=== PATIENT | male | born 1985 | race African-American/Black ===

== ENCOUNTER 2016-09-03 23:02 | Emergency (ER) | payer OTHER ==
--- NOTE | 2016-09-04 01:10 | ER Document Report ---
ED Medical Screen (RME) - General Chief Complaint: Abdominal Pain Stated Complaint: ABDOMINAL PAIN Time Seen by Provider: 09/04/16 01:08 Mode of Arrival: Ambulatory Information source: Patient Notes: 30-year-old male presents to ED for stomach ulcers and rectal bleeding. States he has been going back up to the [place] for 2 months for pain and ulcers. He states he has had the bloody stools for a month and on. He states he was seen at the [place] this morning and discharged at 6 AM that is on some new medicines. He states this afternoon he had a hard stool with blood around it. Then has had some bleeding without having a stool since then. I have greeted and performed a rapid initial assessment of this patient. A comprehensive ED assessment and evaluation of the patient, analysis of test results and completion of medical decision making process will be conducted by an additional ED providers. TRAVEL OUTSIDE OF THE [place] IN LAST 30 DAYS: No - Related Data Allergies/Adverse Reactions: No Known Allergies Allergy (Verified 09/04/16 00:03) Past Medical History Renal/ Medical History: Denies: Hx Peritoneal Dialysis Psychiatric Medical History: Reports: Hx Post Traumatic Stress Disorder - Immunizations Hx Diphtheria, Pertussis, Tetanus Vaccination: No Physical Exam - Vital signs Vitals: Temp Pulse Resp BP Pulse Ox 98.4 F 61 16 150/98 H 98 09/04/16 00:00 09/04/16 00:00 09/04/16 00:00 09/04/16 00:00 09/04/16 00:00 Course - Vital Signs Vital signs: Temp Pulse Resp BP Pulse Ox 98.4 F 61 16 150/98 H 98 09/04/16 00:00 09/04/16 00:00 09/04/16 00:00 09/04/16 00:00 09/04/16 00:00
[2016-09-04 02:22] LABS: ALANINE AMINOTRANSFERASE 17 U/L (21-72); ALBUMIN 4.2 g/dL (3.5-5.0); ALKALINE PHOSPHATASE 111 U/L (38-126); ANION GAP 12 (5-19); ASPARTATE AMINO TRANSFERASE 11 U/L (17-59); BILIRUBIN,DIRECT 0.3 mg/dL (0.0-0.4); BILIRUBIN,TOTAL 0.7 mg/dL (0.2-1.3); BLOOD UREA NITROGEN 11 mg/dL (7-20); CALCIUM 9.8 mg/dL (8.4-10.2); CARBON DIOXIDE 28 mmol/L (22-30); CHLORIDE 102 mmol/L (98-107); GLUCOSE 122 mg/dL (75-110); POTASSIUM 4.4 mmol/L (3.6-5.0); SODIUM 141.5 mmol/L (137-145); TOTAL PROTEIN 7.4 g/dL (6.3-8.2)
[2016-09-04 02:29] LABS: ABSOLUTE EOSINOPHILS # (AUTO) 0.6 10^3/uL (0.0-0.6); ABSOLUTE LYMPHOCYTES (AUTO) 2.2 10^3/uL (0.5-4.7); ABSOLUTE MONOCYTES (AUTO) 0.8 10^3/uL (0.1-1.4); ABSOLUTE NEUT (AUTO) 7.1 10^3/uL (1.7-8.2); BASOPHILS % (AUTO) 0.1 % (0-2); EOSINOPHILS % (AUTO) 5.4 % (0-6); HEMOGLOBIN 16.5 g/dL (13.5-17.0); HGB HCT DIFFERENCE 3.5; LYMPHOCYTES % (AUTO) 20.8 % (13-45); MEAN CORPUSCULAR HEMOGLOBIN 29.4 pg (27.0-33.4); MEAN CORPUSCULAR HGB CONC 35.8 g/dL (32.0-36.0); MEAN CORPUSCULAR VOLUME 82 fl (80-97); MONOCYTES % (AUTO) 7.3 % (3-13); RED BLOOD COUNT 5.61 10^6/uL (4.35-5.55); SEGMENTED NEUTROPHILS % (AUTO) 66.4 % (42-78); WHITE BLOOD COUNT 10.7 10^3/uL (4.0-10.5)
[2016-09-04] MEDS ORDERED: MAG HYDROX/AL HYDROX/SIMETH SUSP 30 ML UDCUP PO ONE (02:45)
[2016-09-04] MEDS ORDERED: LIDOCAINE 2% VISCOUS SOLN 20 ML UDCUP PO ONE (02:45)
[2016-09-04] MEDS ORDERED: METOCLOPRAMIDE HCL ORAL SOLN 10 MG/10 ML UDCUP PO ONE (02:45)
--- NOTE | 2016-09-04 03:01 | ER Document Report ---
ED General - General Chief Complaint: Abdominal Pain Stated Complaint: ABDOMINAL PAIN Time Seen by Provider: 09/04/16 01:08 Mode of Arrival: Ambulatory Notes: Patient is a 30-year-old male who presents with complaint of central abdominal pain. Worse over the epigastric area. No vomiting. Recently he has noticed some blood in his stool. It is bright red. This most on the toilet paper and then some into the toilet bowl as well. No history of hemorrhoids. [facility] Meenu weber who diagnosed with likely gastric ulcer. He is placed on Pepcid. To the Pepcid helps some but he still has pain. She denies any fevers or recent infections. No history of endoscopy or colonoscopy. He is set up to see GI specialist on October 04. He does not take NSAID medications. He occasionally smokes cigarettes. He does not drink alcohol. No drug use. TRAVEL OUTSIDE OF THE [place] IN LAST 30 DAYS: No - Related Data Allergies/Adverse Reactions: No Known Allergies Allergy (Verified 09/04/16 00:03) Past Medical History - General Information source: Patient - Social History Smoking Status: Current Some Day Smoker Frequency of alcohol use: None Drug Abuse: None Family History: Reviewed & Not Pertinent Patient has suicidal ideation: No Patient has homicidal ideation: No Renal/ Medical History: Denies: Hx Peritoneal Dialysis Psychiatric Medical History: Reports: Hx Post Traumatic Stress Disorder - Immunizations Hx Diphtheria, Pertussis, Tetanus Vaccination: No Review of Systems - Review of Systems Notes: My Normal Review Basic REVIEW OF SYSTEMS: CONSTITUTIONAL : Denies fever, chills, or sweats. Denies recent illness. CARDIOVASCULAR: Denies chest pain. RESPIRATORY: Denies cough, cold, or chest congestion. Denies shortness of breath, difficulty breathing, or wheezing. GASTROINTESTINAL: Short abdominal pain. Denies nausea, vomiting, or diarrhea. Occasional blood in stool. GENITOURINARY: Denies difficulty urinating, painful urination, burning, frequency, or blood in urine. MUSCULOSKELETAL: Denies neck or back pain or joint pain or swelling. SKIN: Denies rash or skin lesions. NEUROLOGICAL: Denies altered mental status or loss of consciousness. Denies headache. Denies weakness or paralysis or loss of use of either side. Denies problems with gait or speech. Denies sensory or motor loss. ALL OTHER SYSTEMS REVIEWED AND NEGATIVE. Physical Exam - Vital signs Vitals: Temp Pulse Resp BP Pulse Ox 98.4 F 61 16 150/98 H 98 09/04/16 00:00 09/04/16 00:00 09/04/16 00:00 09/04/16 00:00 09/04/16 00:00 - Notes Notes: General Appearance: Well nourished, alert, cooperative, no acute distress, no obvious discomfort. Vitals: reviewed, See vital signs table. Head: no swelling or tenderness to the head Eyes: PERRL, EOMI, Conjuctiva clear Mouth: No decreasd moisture Lungs: No wheezing, No rales, No rhonci, No accessory muscle use, good air exchange bilaterally. Heart: Normal rate, Regular rythm, No murmur, no rub Abdomen: Normal BS, soft, No rigidity, moderate epigastric and periumbilical pain to palpation of the abdomen., No guarding, no rebound, no abdominal masses , no organomegaly. Rectal: No hemorrhoids or fissures. Extremities: strength 5/5 in all extremities, good pulses in all extremities, no swelling or tenderness in the extremities, no edema. Skin: warm, dry, appropriate color, no rash Neuro: speech clear, oriented x 3, normal affect, responds appropriately to questions. Course - Re-evaluation Re-evalutation: 09/04/16 04:44 Patient says his symptoms are much improved after GI cocktail. Blood work is unremarkable except for very mild leukocytosis. His abdominal exam is benign. The nurse informed me that she was concerned because the patient told her that his pain was so severe earlier that he wanted to kill himself. I did ask the patient about this. Patient smiled and said that he would not actually hurt himself. He says it is just an expression because he was in severe pain. He says he is not suicidal and does not want to harm himself. He does have an upcoming appointment with GI in 1 month. I will have him stop the Pepcid and start Prilosec. I will also place him on Carafate. I informed him that I think the small amount of blood that he had in the toilet bowl earlier is probably not related to an ulcer is probably related to possible internal hemorrhoid being that it was bright red. I encouraged him to return to ER immediately if he has recurrent bleeding or increasing bleeding, worsening pain , fevers, or any vomiting of blood. Patient agrees with plan and will be discharged home. Dictation of this chart was performed using voice recognition software; therefore, there may be some unintended grammatical errors. - Vital Signs Vital signs: Temp Pulse Resp BP Pulse Ox 98.4 F 61 16 150/98 H 98 09/04/16 00:00 09/04/16 00:00 09/04/16 00:00 09/04/16 00:00 09/04/16 00:00 - Laboratory Result Diagrams: 09/04/16 01:30 09/04/16 01:30 Laboratory results interpreted by me: 09/04/16 09/04/16 01:30 01:30 WBC 10.7 H RBC 5.61 H Creatinine 1.60 H Est GFR (Non-Af Amer) 51 L Glucose 122 H AST 11 L ALT 17 L Discharge - Discharge Clinical Impression: Abdominal pain Qualifiers: Abdominal location: epigastric Qualified Code(s): R10.13 - Epigastric pain Condition: Good Disposition: HOME, SELF-CARE Additional Instructions: Please avoid all acidic foods, spicy foods, caffeine, alcohol, coffee, fried foods, and fatty foods. Eat a very bland diet. Please stop taking the Pepcid and start taking the Prilosec and Carafate. Please return to the ER if you have worsening pain, fevers, vomiting of blood or increasing blood in your stool. Prescriptions: Omeprazole 40 mg PO DAILY #30 capsule. Sucralfate [Carafate 1 gm Tablet] 1 gm PO ACHS #120 tablet Forms: Return to Work
[2016-09-04 05:02] VITALS: BP 165/106
== END 2016-09-04 05:02 | disposition home or self-care (01) ==
LOC: ER 23:02
DX: R10.13 Epigastric pain (principal); R10.33 Periumbilical pain; K92.1 Melena; D72.829 Elevated white blood cell count, unspecified; F17.210 Nicotine dependence, cigarettes, uncomplicated
CPT/HCPCS: 99284; 36415; 83690; 85025; 80053; J3490

== ENCOUNTER 2016-09-06 10:16 | Emergency (ER) | payer OTHER ==
[2016-09-06] MEDS ORDERED: LIDOCAINE 2% VISCOUS SOLN 20 ML UDCUP PO ONE (10:46)
[2016-09-06] MEDS ORDERED: MAG HYDROX/AL HYDROX/SIMETH SUSP 30 ML UDCUP PO ONE ×2 (10:46→12:30)
[2016-09-06] MEDS ORDERED: METOCLOPRAMIDE HCL ORAL SOLN 10 MG/10 ML UDCUP PO ONE (10:46)
[2016-09-06 11:41] LABS: ABSOLUTE BASOPHILS # (AUTO) 0.1 10^3/uL (0.0-0.2); ABSOLUTE EOSINOPHILS # (AUTO) 1.3 10^3/uL (0.0-0.6); ABSOLUTE LYMPHOCYTES (AUTO) 2.6 10^3/uL (0.5-4.7); ABSOLUTE MONOCYTES (AUTO) 0.8 10^3/uL (0.1-1.4); ABSOLUTE NEUT (AUTO) 7.5 10^3/uL (1.7-8.2); BASOPHILS % (AUTO) 0.4 % (0-2); EOSINOPHILS % (AUTO) 10.4 % (0-6); HEMATOCRIT 46.6 % (37.9-51.0); HEMOGLOBIN 16.3 g/dL (13.5-17.0); HGB HCT DIFFERENCE 2.3; LYMPHOCYTES % (AUTO) 21.3 % (13-45); MEAN CORPUSCULAR HEMOGLOBIN 29.1 pg (27.0-33.4); MEAN CORPUSCULAR HGB CONC 35.1 g/dL (32.0-36.0); MEAN CORPUSCULAR VOLUME 83 fl (80-97); MONOCYTES % (AUTO) 6.8 % (3-13); RED BLOOD COUNT 5.63 10^6/uL (4.35-5.55); RED CELL DISTRIBUTION WIDTH 13.5 % (11.5-14.0); SEGMENTED NEUTROPHILS % (AUTO) 61.1 % (42-78); WHITE BLOOD COUNT 12.2 10^3/uL (4.0-10.5)
[2016-09-06 11:53] LABS: ALANINE AMINOTRANSFERASE 17 U/L (21-72); ALBUMIN 3.9 g/dL (3.5-5.0); ALKALINE PHOSPHATASE 107 U/L (38-126); ANION GAP 8 (5-19); ASPARTATE AMINO TRANSFERASE 8 U/L (17-59); BILIRUBIN,DIRECT 0.3 mg/dL (0.0-0.4); BILIRUBIN,TOTAL 0.6 mg/dL (0.2-1.3); BLOOD UREA NITROGEN 8 mg/dL (7-20); CALCIUM 9.4 mg/dL (8.4-10.2); CARBON DIOXIDE 29 mmol/L (22-30); CHLORIDE 102 mmol/L (98-107); CREATININE RESULT 1.57 mg/dL (0.52-1.25); GLUCOSE 90 mg/dL (75-110); POTASSIUM 4.2 mmol/L (3.6-5.0); SODIUM 139.3 mmol/L (137-145); TOTAL PROTEIN 6.8 g/dL (6.3-8.2)
--- NOTE | 2016-09-06 12:08 | RADIOLOGY REPORT (SQ) ---
EXAM DESCRIPTION: U/S ABDOMEN COMPLETE W/O DOP COMPLETED DATE/TIME: 09/06/2016 11:58 am REASON FOR STUDY: ruq pain, PT STATES LUQ PAIN COMPARISON: None. TECHNIQUE: Dynamic and static grayscale images acquired of the abdomen and recorded on PACS. Additio elsi selected color Doppler and spectral images recorded. LIMITATIONS: None. FINDINGS: PANCREAS: No masses. Visualized pancreatic duct normal caliber. LIVER: No masses. Echotexture normal. LIVER VASCULATURE: Normal directional flow of the main portal vein and hepatic veins. GALLBLADDER: No stones. Normal wall thickness. No pericholecystic fluid. ULTRASOUND-DETECTED VASQUEZ'S SIGN: Negative. INTRAHEPATIC DUCTS AND COMMON DUCT: CBD and intrahepatic ducts normal caliber. No filling defects. INFERIOR VENA CAVA: Normal flow. AORTA: No aneurysm. RIGHT KIDNEY: Normal size. Normal echogenicity. No solid or suspicious masses. No hydronephros is. No calcifications. LEFT KIDNEY: Normal size. Normal echogenicity. No solid or suspicious masses. No hydronephrosi s. No calcifications. SPLEEN: Normal size. No solid masses. PERITONEAL AND PLEURAL SPACES: No ascites or effusions. OTHER: No other significant finding. IMPRESSION: NORMAL ABDOMINAL ULTRASOUND. TECHNICAL DOCUMENTATION: JOB ID: [id number] [employer]- All Rights Reserved
--- NOTE | 2016-09-06 14:15 | RADIOLOGY REPORT (SQ) ---
EXAM DESCRIPTION: CT ABD/PELVIS NO ORAL OR IV COMPLETED DATE/TIME: 09/06/2016 1:54 pm REASON FOR STUDY: diffuse abd pain COMPARISON: None. TECHNIQUE: CT scan of the abdomen and pelvis performed without intravenous or oral contrast. Images reviewed with lung, soft tissue, and bone windows. Reconstructed coronal and sagittal MPR images revi ewed. All images stored on PACS. All CT scanners at this facility use dose modulation, iterative reconstruction, and/or weight based d osing when appropriate to reduce radiation dose to as low as reasonably achievable (ALARA). [facility]: Dose Right [facility]: CareDose [facility]: Dose Right [facility]: Teradose 4D [facility]: Smart [employer] RADIATION DOSE: Up-to-date CT equipment and radiation dose reduction techniques were employed. CTDIv ol: 5.6 mGy. DLP: 285 mGy-cm.mGy. LIMITATIONS: Lack of contrast and paucity of intra-abdominal fat limits the study. FINDINGS: LOWER CHEST: No significant findings. No nodules or infiltrates. NON-CONTRASTED LIVER, SPLEEN, ADRENALS: Evaluation limited by lack of IV contrast. No identified sign ificant masses. PANCREAS: No masses. No peripancreatic inflammatory changes. GALLBLADDER: No identified stones by CT criteria. No inflammatory changes to suggest cholecystitis. RIGHT KIDNEY AND URETER: No masses. The right kidney lies in the midline in the upper pelvis. No s ignificant calcifications. No hydronephrosis or hydroureter. LEFT KIDNEY AND URETER: No suspicious masses. Assessment limited by lack of IV contrast. No signifi cant calcifications. No hydronephrosis or hydroureter. AORTA AND RETROPERITONEUM: No aneurysm. Numerous mesenteric lymph nodes are present. BOWEL AND PERITONEAL CAVITY: No obvious masses or inflammatory changes. No free fluid. APPENDIX: Normal. PELVIS, BLADDER, AND ABDOMINAL WALL:The urinary bladder is normal. The prostate gland and seminal ve sicles are normal. There is a small amount of free fluid in the pelvis. BONES: No significant findings. OTHER: No other significant finding. IMPRESSION: 1. The right kidney lies in the midline in the upper pelvis. 2. Numerous mesenteric lymph nodes are present concerning for mesenteric adenitis. 3. There is small amount of free fluid in the pelvis. 4. The study is limited as described. TECHNICAL DOCUMENTATION: JOB ID: [id number] Quality ID # [id number]: Final reports with documentation of one or more dose reduction techniques (e.g., Au tomated exposure control, adjustment of the mA and/or kV according to patient size, use of iterative reconstruction technique) 2010 [employer]- All Rights Reserved
--- NOTE | 2016-09-06 14:33 | ER Document Report ---
ED GI/ - General Chief Complaint: Abdominal Pain Stated Complaint: ABDOMINAL PAIN Time Seen by Provider: 09/06/16 10:45 Mode of Arrival: Ambulatory Information source: Patient Notes: Patient presents with severe epigastric pain. He states it is constant and burning and sharp. It is worse with eating and better when he does not. He states he has had approximately 5 visits to emergency department has tried multiple medications. He says the only medication to give some relief is when he is a GI cocktail or Carafate. He states he has an appointment at the end of the month with a dry kiln operator. He has not seen a dry kiln operator previously. He has never had any type of endoscopy done. He does have some nausea. No problems with urine or stool. TRAVEL OUTSIDE OF THE [place] IN LAST 30 DAYS: No - Related Data Allergies/Adverse Reactions: No Known Allergies Allergy (Verified 09/04/16 00:03) Past Medical History - General Information source: Patient - Social History Smoking Status: Current Some Day Smoker Chew tobacco use (# tins/day): No Frequency of alcohol use: None Drug Abuse: None Family History: Reviewed & Not Pertinent Patient has suicidal ideation: No Patient has homicidal ideation: No Renal/ Medical History: Denies: Hx Peritoneal Dialysis Psychiatric Medical History: Reports: Hx Post Traumatic Stress Disorder - Immunizations Hx Diphtheria, Pertussis, Tetanus Vaccination: No Review of Systems - Review of Systems Constitutional: denies: Chills, Fever Cardiovascular: denies: Chest pain, Palpitations Respiratory: denies: Cough, Short of breath Skin: denies: Lesions, Rash -: Yes All other systems reviewed and negative Physical Exam - Vital signs Vitals: Temp Pulse Resp BP Pulse Ox 98 F 74 16 135/74 H 98 09/06/16 10:18 09/06/16 10:18 09/06/16 10:18 09/06/16 10:18 09/06/16 10:18 Interpretation: Normal - General General appearance: Appears well, Alert - HEENT Head: Normocephalic, Atraumatic Eyes: Normal Pupils: PERRL - Respiratory Respiratory status: No respiratory distress Chest status: Nontender Breath sounds: Normal Chest palpation: Normal - Cardiovascular Rhythm: Regular Heart sounds: Normal auscultation Murmur: No - Abdominal Inspection: Normal Distension: No distension Bowel sounds: Normal Tenderness: Tender - Patient has moderate tenderness the bilateral upper quadrants and epigastric area. No rebound no guarding. Organomegaly: No organomegaly - Back Back: Normal, Nontender - Extremities General upper extremity: Normal inspection, Nontender, Normal color, Normal ROM , Normal temperature General lower extremity: Normal inspection, Nontender, Normal color, Normal ROM , Normal temperature, Normal weight bearing. No: Matt's sign - Neurological Neuro grossly intact: Yes Cognition: Normal Orientation: AAOx4 [place] Coma Scale Eye Opening: Spontaneous Love Coma Scale Verbal: Oriented [place] Coma Scale Motor: Obeys Commands Love Coma Scale Total: 15 Speech: Normal Motor strength normal: LUE, RUE, LLE, RLE Sensory: Normal - Psychological Associated symptoms: Normal affect, Normal mood - Skin Skin Temperature: Warm Skin Moisture: Dry Skin Color: Normal Course - Vital Signs Vital signs: Temp Pulse Resp BP Pulse Ox 98 F 74 16 135/74 H 98 09/06/16 10:18 09/06/16 10:18 09/06/16 10:18 09/06/16 10:18 09/06/16 10:18 - Laboratory Result Diagrams: 09/06/16 11:18 09/06/16 11:18 Laboratory results interpreted by me: 09/06/16 09/06/16 11:18 11:18 WBC 12.2 H RBC 5.63 H Eosinophils % 10.4 H Absolute Eosinophils 1.3 H Creatinine 1.57 H Est GFR (Non-Af Amer) 52 L AST 8 L ALT 17 L - Diagnostic Test Radiology reviewed: Image reviewed, Reports reviewed - Patient's ultrasound was unremarkable. CT scan was obtained without contrast because nurses were unable to start an IV. The CT scan did show numerous mesenteric lymph nodes consistent with mesenteric adenitis. I called and discussed this ct personally with the radiologist, Dr. Pike. He stated that a CT with contrast would not add significant benefit to the patient. Discharge - Discharge Clinical Impression: Mesenteric adenitis, Gastritis Condition: Stable Disposition: HOME, SELF-CARE Instructions: Abdominal Pain ([facility]) Additional Instructions: Please follow-up with gastroenterology as scheduled. Prescriptions: Hydrocodone/Acetaminophen [Alpha 5-325 Tablet] 1 - 2 tab PO ASDIR PRN #15 tab PRN Reason: Forms: Return to Work
[2016-09-06 14:46] VITALS: BP 148/94
== END 2016-09-06 14:46 | disposition home or self-care (01) ==
LOC: ER 10:16
DX: I88.0 Nonspecific mesenteric lymphadenitis (principal); K29.70 Gastritis, unspecified, without bleeding; F17.200 Nicotine dependence, unspecified, uncomplicated
CPT/HCPCS: 99284; 36415; 85025; 80053; 76700; 74176; J3490

== ENCOUNTER 2017-08-15 01:04 | Emergency (ER) | payer OTHER ==
[2017-08-15] MEDS ORDERED: TETRACAINE HCL 0.5% OPH SOLN 2 ML OU ONE (01:32)
--- NOTE | 2017-08-15 01:33 | ER Document Report ---
ED Medical Screen (RME) - General Chief Complaint: Eye Problem Stated Complaint: UNABLE TO OPEN EYES Time Seen by Provider: 08/15/17 01:32 Notes: 31 years old Adacel woke up sleep just prior to arrival with burning sensation of both eyes. Otherwise has no history. TRAVEL OUTSIDE OF THE [place] IN LAST 30 DAYS: No - Related Data Allergies/Adverse Reactions: No Known Allergies Allergy (Verified 09/04/16 00:03) Past Medical History Renal/ Medical History: Denies: Hx Peritoneal Dialysis Psychiatric Medical History: Reports: Hx Post Traumatic Stress Disorder - Immunizations Hx Diphtheria, Pertussis, Tetanus Vaccination: No Physical Exam - Vital signs Vitals: Temp Pulse Resp BP Pulse Ox 97.9 F 61 15 140/87 H 97 08/15/17 01:12 08/15/17 01:12 08/15/17 01:12 08/15/17 01:12 08/15/17 01:12 Course - Vital Signs Vital signs: Temp Pulse Resp BP Pulse Ox 97.9 F 61 15 140/87 H 97 08/15/17 01:12 08/15/17 01:12 08/15/17 01:12 08/15/17 01:12 08/15/17 01:12
--- NOTE | 2017-08-15 02:44 | ER Document Report ---
ED Eye Complaint - General Chief Complaint: Eye Problem Stated Complaint: UNABLE TO OPEN EYES Time Seen by Provider: 08/15/17 01:32 Mode of Arrival: Ambulatory Information source: Patient Notes: 31-year-old male presents to the emergency department with complaints of foreign body sensation in his bilateral eyes. He states that this started just prior to arrival. He states that it started in his right eye first. Patient states that he was rubbing his eye. He states that there was purulent material coming from his eyes. The material was "gooey" at first then crusted over. Denies trauma or injury. Patient states that he has had upper respiratory symptoms over the last couple days. He complains of rhinorrhea and a scratchy throat. TRAVEL OUTSIDE OF THE [place] IN LAST 30 DAYS: No - HPI Onset: Just prior to arrival Eye location: Bilateral Injury: No Occurred at: Home Quality of pain: No pain Severity: None Pain Level: Denies Safety glasses worn: No Contact lenses worn: No Associated symptoms: Itching, Redness, Matting, Foreign body sensation - Related Data Allergies/Adverse Reactions: No Known Allergies Allergy (Verified 09/04/16 00:03) Past Medical History - Social History Smoking Status: Current Every Day Smoker Family History: Reviewed & Not Pertinent Patient has suicidal ideation: No Patient has homicidal ideation: No Renal/ Medical History: Denies: Hx Peritoneal Dialysis Psychiatric Medical History: Reports: Hx Post Traumatic Stress Disorder - Immunizations Hx Diphtheria, Pertussis, Tetanus Vaccination: No Review of Systems - Review of Systems Constitutional: No symptoms reported EENT: Eye discharge Cardiovascular: No symptoms reported Respiratory: No symptoms reported Gastrointestinal: No symptoms reported Genitourinary: No symptoms reported Male Genitourinary: No symptoms reported Musculoskeletal: No symptoms reported Skin: No symptoms reported Hematologic/Lymphatic: No symptoms reported Neurological/Psychological: No symptoms reported -: Yes All other systems reviewed and negative Physical Exam - Vital signs Vitals: Temp Pulse Resp BP Pulse Ox 97.9 F 61 15 140/87 H 97 08/15/17 01:12 08/15/17 01:12 08/15/17 01:12 08/15/17 01:12 08/15/17 01:12 Interpretation: Normal - Notes Notes: PHYSICAL EXAMINATION: GENERAL: Well-appearing, well-nourished and in no acute distress. HEAD: Atraumatic, normocephalic. EYES: Pupils equal round and reactive to light, extraocular movements intact, sclera anicteric, conjunctiva are injected. +watery ENT: Nares patent, oropharynx clear without exudates. Moist mucous membranes. NECK: Normal range of motion, supple without lymphadenopathy LUNGS: Breath sounds clear to auscultation bilaterally and equal. No wheezes rales or rhonchi. HEART: Regular rate and rhythm without murmurs ABDOMEN: Soft, nontender, nondistended abdomen. No guarding, no rebound. No masses appreciated. Musculoskeletal: Normal range of motion, no pitting or edema. No cyanosis. NEUROLOGICAL: Cranial nerves grossly intact. Normal speech, normal gait. Normal sensory, motor exams PSYCH: Normal mood, normal affect. SKIN: Warm, Dry, normal turgor, no rashes or lesions noted. Course - Re-evaluation Re-evalutation: 08/15/17 04:07 Bilateral eyes were numbed with tetracaine. Fluorescein dye was placed in the eyes. Eyes were evaluated with Siu lamp. Patient has bilateral corneal abrasions at the 6 o'clock position. I will start the patient on antibiotic eyedrops. I instructed the patient to use the medication as directed, to follow -up with his primary care physician this week, and to return to the emergency department for worsening symptoms. Patient is agreeable to plan of care. - Vital Signs Vital signs: Temp Pulse Resp BP Pulse Ox 97.9 F 61 15 140/87 H 97 08/15/17 01:12 08/15/17 01:12 08/15/17 01:12 08/15/17 01:12 08/15/17 01:12 Discharge - Discharge Clinical Impression: Conjunctivitis due to adenovirus, both eyes Condition: Good Disposition: HOME, SELF-CARE Instructions: Viral Syndrome ([facility]), Eyedrop Use ([facility]) Prescriptions: Ciprofloxacin HCl [Ciloxan 0.3% Oph Soln 2.5 ml] 50 drop OP Q2 #1 bottle Referrals: FRED DUENAS [Primary Care Provider] - Follow up as needed KUSHAL CALVO MD [COMMUNITY BASED STAFF] - Follow up as needed
[2017-08-15 04:35] VITALS: BP 150/90
== END 2017-08-15 04:34 | disposition home or self-care (01) ==
LOC: ER 01:04
DX: H10.9 Unspecified conjunctivitis (principal)
CPT/HCPCS: 99283

== ENCOUNTER 2017-09-11 11:00 | Emergency (ER) | payer OTHER ==
--- NOTE | 2017-09-11 14:59 | ER Document Report ---
ED Eye Complaint - General Chief Complaint: Eye Injury Stated Complaint: EYE ISSUE Time Seen by Provider: 09/11/17 13:49 Notes: 31-year-old male to the emergency department complaining of bilateral eye pain and watering. States that he was diagnosed with bilateral corneal abrasions last week. Was placed on erythromycin. Now his eyes are extremely dry and will not stop watering. Has been using Clear Eyes but does not help. Still thinks it may be something in his eyes. Right eye is worse than the left. Denies any other symptoms. Denies any blurred vision. Denies any loss of vision. Denies any pain with eye movement. TRAVEL OUTSIDE OF THE [place] IN LAST 30 DAYS: No - HPI Eye location: Bilateral - Related Data Allergies/Adverse Reactions: No Known Allergies Allergy (Verified 09/04/16 00:03) Past Medical History - General Information source: Patient - Social History Smoking Status: Never Smoker Chew tobacco use (# tins/day): No Frequency of alcohol use: Occasional Drug Abuse: None Lives with: Family Family History: Reviewed & Not Pertinent Patient has suicidal ideation: No Patient has homicidal ideation: No Renal/ Medical History: Denies: Hx Peritoneal Dialysis Psychiatric Medical History: Reports: Hx Post Traumatic Stress Disorder - Immunizations Hx Diphtheria, Pertussis, Tetanus Vaccination: No Review of Systems - Review of Systems Constitutional: denies: Fever, Malaise, Weakness EENT: Eye pain, Eye discharge, Tearing. denies: Blurred vision, Double vision, Throat pain, Difficulty swallowing Cardiovascular: denies: Chest pain, Heart racing Respiratory: denies: Cough, Hurts to breathe, Short of breath, Wheezing Genitourinary: denies: Burning, Dysuria, Discharge Male Genitourinary: denies: Testicular pain, Penile discharge Musculoskeletal: denies: Back pain, Joint pain, Muscle pain Skin: denies: Change in color, Dryness, Lesions, Lumps, Rash Neurological/Psychological: denies: Confusion, Weakness, Numbness Physical Exam - Vital signs Vitals: Temp Pulse Resp BP Pulse Ox 97.9 F 71 14 144/73 H 97 09/11/17 11:48 09/11/17 11:48 09/11/17 11:48 09/11/17 11:48 09/11/17 11:48 Interpretation: Normal - General General appearance: Appears well, Alert - HEENT Head: Normocephalic, Atraumatic Eyes: Other - Patient has large amount of tearing bilaterally. After tetracaine applied flourescein applied. No significant fluorescein uptake.. No foreign bodies. Tonometry performed bilateral eyes. No elevated pressures. Pupils: PERRL Visual acuity- Right eye: 20/25 Visual acuity- Left eye: 20/30 Visual acuity- Both eyes: 20/20 Corrective lenses worn: No Pharynx: Normal - Respiratory Respiratory status: No respiratory distress Breath sounds: Normal - Neurological Neuro grossly intact: Yes Cognition: Normal Orientation: AAOx4 [place] Coma Scale Eye Opening: Spontaneous [place] Coma Scale Verbal: Oriented [place] Coma Scale Motor: Obeys Commands [place] Coma Scale Total: 15 Speech: Normal Motor strength normal: LUE, RUE, LLE, RLE Sensory: Normal - Psychological Associated symptoms: Normal affect, Normal mood - Skin Skin Temperature: Warm Skin Moisture: Dry Skin Color: Normal Course - Re-evaluation Re-evalutation: 09/11/17 14:57 At this time patient is having a large amount of tearing but no obvious uptake with floor seen. No obvious foreign bodies. Does not appear to be having acute angle glaucoma. Tonometry was performed. I am going to recommend that patient take steroid drops at this time. We will give him follow-up information for ophthalmology. I am encouraging him to get seen as soon as possible. 09/11/17 14:58 - Vital Signs Vital signs: Temp Pulse Resp BP Pulse Ox 97.8 F 70 14 140/84 H 100 09/11/17 14:59 09/11/17 14:59 09/11/17 11:48 09/11/17 14:59 09/11/17 14:59 Discharge - Discharge Clinical Impression: Recurrent iritis of both eyes Condition: Good Disposition: HOME, SELF-CARE Instructions: [facility] ([facility]) Prescriptions: Prednisolone Acetate [Pred Forte] 2 drop OU BID 7 Days #1 bot Referrals: RAJAN ACOSTA DO [ACTIVE STAFF] - 09/12/17 8:00 am
[2017-09-11 15:02] VITALS: BP 140/84
== END 2017-09-11 15:18 | disposition home or self-care (01) ==
LOC: ER 11:00
DX: H20.9 Unspecified iridocyclitis (principal); H57.13 Ocular pain, bilateral
CPT/HCPCS: 99282

== ENCOUNTER 2019-04-11 22:05 | Emergency (ER) | payer OTHER ==
[2019-04-11] MEDS ORDERED: BENZONATATE 100 MG CAPSULE PO ONE (22:39)
[2019-04-11] MEDS ORDERED: PREDNISONE 20 MG TABLET PO ONE (22:40)
--- NOTE | 2019-04-11 22:40 | ER Document Report ---
HPI - HPI Time Seen by Provider: 04/11/19 22:36 Pain Level: 4 Notes: Patient is otherwise healthy 33-year-old male presenting to the emergency department with complaints of productive cough, chills, lethargy, body aches, decreased appetite, difficulty breathing over the last 2 days. He reports he has tried [id number] medications but he is gotten worse. He denies any respiratory history. Past Medical History - General Information source: Patient - Social History Smoking Status: Current Every Day Smoker Family History: Reviewed & Not Pertinent Patient has suicidal ideation: No Patient has homicidal ideation: No Renal/ Medical History: Denies: Hx Peritoneal Dialysis Psychiatric Medical History: Reports: Hx Post Traumatic Stress Disorder - Immunizations Hx Diphtheria, Pertussis, Tetanus Vaccination: No Vertical Provider Document - CONSTITUTIONAL Notes: PHYSICAL EXAMINATION: GENERAL: Well-appearing, well-nourished and in no acute distress. HEAD: Atraumatic, normocephalic. EYES: Pupils equal round extraocular movements intact, conjunctiva are normal. ENT: Nares patent, oropharynx clear, known erythematous, no exudates, uvula midline, no tonsillar swelling. NECK: Normal range of motion, no cervical lymphadenopathy. LUNGS: No respiratory distress, lung sounds clear and equal bilaterally, no wheezes, rales or rhonchi. Musculoskeletal: Normal range of motion NEUROLOGICAL: Normal speech, normal gait. PSYCH: Normal mood, normal affect. SKIN: Warm, Dry, normal turgor, no rashes or lesions noted. - INFECTION CONTROL TRAVEL OUTSIDE OF THE [place] IN LAST 30 DAYS: No Course - Re-evaluation Re-evalutation: Patient appears well, nontoxic, vital signs within normal limits. Patient with likely viral upper respiratory illness. Patient will be discharged home on prednisone and Tessalon Perles. Patient verbalizes understanding and agreement with this plan. ED return precautions discussed, patient verbalized agreement with this. - Vital Signs Vital signs: Temp Pulse Resp BP Pulse Ox 98.9 F 99 20 154/70 H 94 04/11/19 22:11 04/11/19 22:11 04/11/19 22:11 04/11/19 22:11 04/11/19 22:11 Discharge - Discharge Clinical Impression: Viral URI Condition: Stable Disposition: HOME, SELF-CARE Additional Instructions: You are seen in the emergency department for a viral upper respiratory illness. Your chest x-ray was unremarkable. Your influenza was negative. Please take medications as prescribed. Get plenty rest. Drink plenty of fluids. This cough is lasting some people several weeks. Follow-up with primary care in 3 to 5 days for recheck if not improving. Return to the emergency department if you have severe shortness of breath, develop a fever that cannot be broken with Tylenol or ibuprofen or any other worsening or life-threatening symptoms. Prescriptions: Benzonatate [Tessalon Perles 100 mg Capsule] 1 - 2 tab PO Q8HP PRN #30 capsule PRN Reason: Prednisone [Deltasone 20 mg Tablet] 3 tab PO DAILY 5 Days #15 tablet Forms: Return to Work Referrals: [facility] [Primary Care Provider] - Follow up as needed
--- NOTE | 2019-04-11 23:22 | RADIOLOGY REPORT (SQ) ---
EXAM DESCRIPTION: XR CHEST 2 VIEWS COMPLETED DATE/TME: 04/11/2019 22:40 CLINICAL HISTORY: cough COMPARISON: None. FINDINGS: Frontal and lateral views of the chest. Cardiomediastinal silhouette: Normal size and contour. Lungs: No consolidation, pneumothorax, or pleural effusion. Bones: No acute osseous abnormality. Upper abdomen: No abnormality identified. IMPRESSION: 1. No acute pulmonary process identified.
[2019-04-11 23:35] LABS: A TYPE INFLUENZA AG NEGATIVE (NEGATIVE); B INFLUENZA AG NEGATIVE (NEGATIVE)
[2019-04-11 23:47] VITALS: BP 138/88
== END 2019-04-12 00:05 | disposition home or self-care (01) ==
LOC: ER 22:05
DX: J06.9 Acute upper respiratory infection, unspecified (principal); M79.10 Myalgia, unspecified site; F17.200 Nicotine dependence, unspecified, uncomplicated
CPT/HCPCS: 99283; 87804; 71046; J7512

== ENCOUNTER 2019-08-23 06:46 | Emergency (ER) | payer OTHER ==
[2019-08-23 06:52] VITALS: BP 149/92
--- NOTE | 2019-08-23 16:02 | ER Document Report ---
Entered by JOSHUA LE SCRIBE 08/23/19 0924 Acting as scribe for:LINDA HENRIQUEZ MD ED Oral Problem - General Chief Complaint: Toothache Stated Complaint: MOUTH PAIN Time Seen by Provider: 08/23/19 09:16 Primary Care Provider: ROSA ELENA,NATALIYA [Primary Care Provider] - Follow up as needed Mode of Arrival: Ambulatory Information source: Patient Notes: This 33 year old male patient presents to the emergency department today with complaints of dental pain. Patient had his four wisdom teeth removed three days ago on 08/19 and he complains of left lower jaw pain/swelling. Patient states the right lower extraction hurts but not bad. There is no pain with the upper extractions. TRAVEL OUTSIDE OF THE [place] IN LAST 30 DAYS: No - Related Data Allergies/Adverse Reactions: No Known Allergies Allergy (Verified 09/04/16 00:03) Home Medications: percocet. motrin. antibiotic Past Medical History - General Information source: Patient - Social History Smoking Status: Current Every Day Smoker Cigarette use (# per day): Yes Chew tobacco use (# tins/day): No Frequency of alcohol use: None Drug Abuse: None Lives with: Family Family History: Reviewed & Not Pertinent Patient has homicidal ideation: No Psychiatric Medical History: Reports: Hx Post Traumatic Stress Disorder Surgical Hx: Negative - Immunizations Hx Diphtheria, Pertussis, Tetanus Vaccination: No Review of Systems - Review of Systems Constitutional: No symptoms reported EENT: See HPI, Mouth swelling, Dental problem Cardiovascular: No symptoms reported Respiratory: No symptoms reported Gastrointestinal: No symptoms reported Genitourinary: No symptoms reported Male Genitourinary: No symptoms reported Musculoskeletal: No symptoms reported Skin: No symptoms reported Hematologic/Lymphatic: No symptoms reported Neurological/Psychological: No symptoms reported -: Yes All other systems reviewed and negative Physical Exam - Vital signs Vitals: Temp Pulse Resp BP Pulse Ox 97.4 F 76 14 149/92 H 98 08/23/19 06:50 08/23/19 06:50 08/23/19 06:50 08/23/19 06:50 08/23/19 06:50 - Notes Notes: Physical Exam: General: Alert, appears well. HEENT: Normocephalic. Atraumatic. PERRLA. Extraocular movements intact. Oropharynx clear. Mild left lower jaw swelling consistent with dry socket. Other extraction sites appear to be healing appropriately. Neck: Supple. Respiratory: No respiratory distress. Abdominal: Normal Inspection. No distension. Extremities: Moves all four extremities. Neurological: Normal cognition. AAOx4. Normal speech. Psychological: Normal affect. Normal Mood. Skin: Warm. Dry. Normal color. Course - Vital Signs Vital signs: Temp Pulse Resp BP Pulse Ox 97.4 F 76 14 149/92 H 98 08/23/19 06:53 08/23/19 06:50 08/23/19 06:50 08/23/19 06:50 08/23/19 06:50 Discharge - Discharge Clinical Impression: Dry tooth socket Condition: Stable Disposition: HOME, SELF-CARE Additional Instructions: Your history and physical examination suggest that you are developing a dry soc ket where the left lower third molar was removed. Continue your regular medications. Try using clove oil as instructed. Follow-up with your oral surgeon if not improving. RETURN TO THE EMERGENCY ROOM IF ANY NEW OR WORSENING SYMPTOMS. Referrals: [facility] [Primary Care Provider] - Follow up as needed I personally performed the services described in the documentation, reviewed and edited the documentation which was dictated to the scribe in my presence, and it accurately records my words and actions.
== END 2019-08-23 09:43 | disposition home or self-care (01) ==
LOC: ER 06:46
DX: M27.3 Alveolitis of jaws (principal); K08.89 Other specified disorders of teeth and supporting structures; R68.84 Jaw pain; R22.0 Localized swelling, mass and lump, head; F17.210 Nicotine dependence, cigarettes, uncomplicated
CPT/HCPCS: 99282